=== PATIENT | female | born 1975 | race Caucasian/White ===

== ENCOUNTER → 2017-09-03 | Outpatient (CLI) | payer BC ==
[~2017-09-03] MED LIST: DOCU100C37 PO; FERR-74 PO; IBUP-1773 PO
--- NOTE | 2017-09-03 10:02 | Diagnostic Imaging Report ---
EXAMINATION: Left breast ultrasound. INDICATION: Nodule in the upper aspect of the left breast. FINDINGS: At the 2 o'clock zone 5 cm from the nipple, there is a lobulated lesion with the appearance suggestive of a lymph node with a fatty hilum that has mildly increased vascularity. It measures 1.3 x 0.7 x 1 cm. No other lesions in the upper breast are seen. This explains the mammographic abnormality. The etiology is unclear. IMPRESSION: Likely benign mildly enlarged intramammary lymph node at the 2 o'clock zone 5 cm from the nipple with slightly increased vascularity, probably reactive. No suspicious mass is identified. Assessment with ultrasound in 6 months to ensure stability is recommended. ACR BI-RADS Category 3: Probably benign findings. Dictated by: Dictated on workstation # [id number]
== END ==
LOC: RAD 08:47
PROVIDERS: ATTEND Nurse Practitioner Family
DX: R92.8 Other abnormal and inconclusive findings on diagnostic imaging of breast (principal)
CPT/HCPCS: 76642

== ENCOUNTER → 2018-03-06 | Outpatient (CLI) | payer BC, OTHER ==
[~2018-03-06] MED LIST changes: -FERR-74 PO; +FERR325T18 PO
--- NOTE | 2018-03-06 12:42 | Diagnostic Imaging Report ---
INDICATION: Six-month followup of left breast intramammary lymph node. COMPARISON: 09/03/2017. FINDINGS: Sonographic interrogation of the left breast at the 2 o'clock location was performed. There is a slightly lobulated hypoechoic nodule at the 2 o'clock location 5 cm from the nipple measuring 10 mm x 5 mm x 8 mm. This compares with 13 mm x 7 mm x 10 mm on the prior exam. This again most likely represents an intramammary lymph node. No new mass is detected. IMPRESSION: Slight decrease in the size of the intramammary lymph node at the 2 o'clock location in the left breast when compared with the exam from 09/03/2017. The patient may return to routine annual screening mammography in August 2018. ACR BI-RADS Category 2: Benign findings. Dictated by: Dictated on workstation # [id number]
== END ==
LOC: RAD 10:34
PROVIDERS: ATTEND Family Medicine
DX: R59.0 Localized enlarged lymph nodes (principal); N63.0 Unspecified lump in unspecified breast
CPT/HCPCS: 76642

== ENCOUNTER → 2018-09-17 | Outpatient (CLI) | payer OTHER | LOC: RAD 11:16 | PROVIDERS: ATTEND Nurse Practitioner Family | DX: Z12.31 Encounter for screening mammogram for malignant neoplasm of breast (principal); Z53.8 Procedure and treatment not carried out for other reasons ==

== ENCOUNTER → 2018-09-18 | Outpatient (CLI) | payer OTHER ==
--- NOTE | 2018-09-18 14:36 | Diagnostic Imaging Report ---
Indication: Palpable lump in the upper-outer left breast. Correlation is made with prior mammogram from 09/03/2017. 2-D and 3-D bilateral diagnostic mammography was performed with CAD. Both breasts are heterogeneously dense, limiting sensitivity of mammography. Bilateral breast implants are noted. Implant contours appear stable. Circumscribed density in the upper outer left breast seen previously remains present but appears smaller. This will be further evaluated with mammography. Adjacent tiny circumscribed nodules are present as well and appear similar to prior. No new mass is seen. No suspicious calcifications are identified. The axillae are unremarkable. Impression: BI-RADS 0. Decrease in size of circumscribed density in the upper outer left breast when compared with exam of one year earlier. Even so, followup of this area with ultrasound is recommended and will be performed today. Dictated by: Dictated on workstation # [id number]
--- NOTE | 2018-09-18 19:44 | Diagnostic Imaging Report ---
INDICATION: Six-month followup of left breast nodule. COMPARISON: Correlation is made with prior exam from 03/06/2018. EXAMINATION: Sonographic interrogation at the 2 o'clock location of the left breast, 5 cm from the nipple. FINDINGS: Again shown is an parenchymal lymph node. This measures 1.1 x 0.4 x 0.8 cm, similar in size to prior exam. No new mass is detected. IMPRESSION: Stable left breast intraparenchymal lymph node. Patient may return to routine annual screening mammography. ACR BI-RADS Category 2: Benign findings. Result letter will be mailed to the patient. Note: At least 10% of breast cancer is not imaged by mammography. Dictated by: Dictated on workstation # [id number]
== END ==
LOC: RAD 13:54
PROVIDERS: ATTEND Nurse Practitioner Family
DX: N63.21 Unspecified lump in the left breast, upper outer quadrant (principal); R92.2 Inconclusive mammogram
CPT/HCPCS: 76642; 77066

== ENCOUNTER → 2019-09-30 | Outpatient (CLI) | payer OTHER ==
--- NOTE | 2019-09-30 10:10 | Diagnostic Imaging Report ---
INDICATION: Screening. TECHNIQUE: The current study was also evaluated with a Computer Aided Detection (CAD) system. 3D Tomographic imaging was also performed. COMPARISON: 09/18/2018, 08/21/2017, and 07/18/2016. FINDINGS: There has been bilateral breast augmentation with implants. The implants are intact. The thyroid gland tissue is otherwise heterogeneously dense. There is no dominant mass, spiculated lesion, or suspicious calcification identified. The skin, nipples, and axillae are unremarkable. IMPRESSION: Benign findings. ACR BI-RADS Category 2: Benign findings. Result letter will be mailed to the patient. Note: At least 10% of breast cancer is not imaged by mammography. Dictated by: Dictated on workstation # [id number]
== END ==
LOC: RAD 09:00
PROVIDERS: ATTEND Nurse Practitioner Family
DX: Z12.31 Encounter for screening mammogram for malignant neoplasm of breast (principal)
CPT/HCPCS: 77067

== ENCOUNTER → 2020-11-08 | Outpatient (CLI) | payer OTHER ==
--- NOTE | 2020-11-08 12:45 | Diagnostic Imaging Report ---
INDICATION: Routine screening. Correlation is made with prior mammogram from 09/30/2019 and 09/18/2018. 2-D and 3-D bilateral screening mammography was performed with CAD. Bilateral subpectoral breast implants are noted. Implant contours appear to be stable. Breast parenchyma is heterogeneously dense, limiting the sensitivity of mammography. No mass or malignant appearing microcalcifications are seen. Axillae are unremarkable. IMPRESSION: BI-RADS Category 2 No mammographic features suspicious for malignancy are identified. ACR BI-RADS Category 2: Benign findings. Result letter will be mailed to the patient. Note: At least 10% of breast cancer is not imaged by mammography. Dictated by: Dictated on workstation # [id number]
== END ==
LOC: RAD 10:15
PROVIDERS: ATTEND Nurse Practitioner Family
DX: Z12.31 Encounter for screening mammogram for malignant neoplasm of breast (principal)
CPT/HCPCS: 77063; 77067

== ENCOUNTER → 2021-11-29 | Outpatient (CLI) | payer OTHER ==
--- NOTE | 2021-11-29 13:38 | Diagnostic Imaging Report ---
Indication: Routine screening. Comparison is made with prior mammogram 11/08/2020 and 09/30/2019. 2-D and 3-D bilateral screening mammography was performed with CAD. Bilateral subpectoral breast implants are noted. Implant contours are smooth. Both breasts are heterogeneously dense, limiting the sensitivity of mammography. The parenchymal pattern is stable. No mass or malignant-appearing microcalcifications are seen. Axillae are unremarkable. IMPRESSION: BI-RADS Category 2 No mammographic features suspicious for malignancy are identified. ACR BI-RADS Category 2: Benign findings. Result letter will be mailed to the patient. Note: At least 10% of breast cancer is not imaged by mammography. Dictated by: Dictated on workstation # [id number]
== END ==
LOC: RAD 11:30
PROVIDERS: ATTEND Family Medicine
DX: Z12.31 Encounter for screening mammogram for malignant neoplasm of breast (principal)
CPT/HCPCS: 77063; 77067

== ENCOUNTER → 2023-02-20 | Outpatient (CLI) | payer OTHER ==
--- NOTE | 2023-02-22 08:57 | Diagnostic Imaging Report ---
Indication: Routine screening. Comparison is made with prior mammogram from 11/29/2021 and 11/08/2020. 2-D and 3-D bilateral screening mammography was performed with CAD. CAD is utilized. The current study was also evaluated with a Computer Aided Detection (CAD) system. Bilateral subpectoral breast implants again noted. Implant contours are smooth, without evidence of extracapsular rupture. Both breasts are heterogeneously dense, limiting the sensitivity of mammography. The parenchymal pattern is stable. Intraparenchymal lymph nodes in the upper outer left breast are stable. No spiculated mass or malignant appearing microcalcifications are seen. Axillae are unremarkable. IMPRESSION: BI-RADS Category 2 No mammographic features suspicious for malignancy are identified. ACR BI-RADS Category 2: Benign findings. Result letter will be mailed to the patient. Note: At least 10% of breast cancer is not imaged by mammography. Dictated by: Dictated on workstation # [id number]
== END ==
LOC: RAD 10:20
PROVIDERS: ATTEND Family Medicine
DX: Z12.31 Encounter for screening mammogram for malignant neoplasm of breast (principal)
CPT/HCPCS: 77063; 77067